=== PATIENT | male | born 1955 | race Caucasian/White ===

== ENCOUNTER → 2016-07-05 | Day surgery (SDC) | payer OTHER ==
[2016-06-30 08:21] VITALS: Ht 175.3 cm; Wt 86.4 kg
[~2016-07-05] VITALS: Ht 175.3 cm; Wt 86.4 kg
[~2016-07-05] MED LIST: ADVIN25/60 INH; ASPCH81X PO; AZITTAB PO; EZET10TA63 PO; HYZ/10015 PO; LIDOCAINE HCL 2% 2 ML VIAL (20MG/ML) ONE; METO50TA7 PO; MULT-506 PO; PROPOFOL IV EMULSION 10 MG/ML 20 ML VIAL IV ONE; SIMV40TA2 PO; SODIUM CHLORIDE 0.9% 500ML 500 ML IV ONE
--- NOTE | 2016-07-05 13:26 | Endo History and Physical ---
History & Physical Date of Service: Jul 05, 2016. Chief Complaint: Screening Referring Physician: Ruth Menjivar History of Present Illness screening colon Past Surgical History Hx Cardiac Surgery: No Hx Internal Defibrillator: No Hx Pacemaker: No Hx Abdominal Surgery: Yes (INGUINAL HERNIA) Hx of Implantable Prosthesis: No Hx Post-Op Nausea and Vomiting: No Hx Cancer Surgery: No Hx Thoracic Surgery: No Hx Orthopedic: No Hx Urinary Tract Surgery: No Family History None Social History Smoking Status: Former Smoker Hx Substance Use: No Hx Alcohol Use: Yes (4-5 BEERS WEEKLY) Allergies Coded Allergies: NO KNOWN DRUG ALLERGIES (Verified Allergy, Unknown, ., 06/30/16) Current Medications Reported Home Medications Medications Dose Route/Sig Max Daily Dose Days Date Category Zithromax Z-Wilson (Azithromycin) 250 Mg Tab 1 Pkt PO UD 5 06/30/16 Reported Multivitamin (Multivitamins) Tab 1 Tab PO QPM 06/30/16 Reported Aspirin Chewable (Aspirin) 81 Mg Chew 2 Tab PO QPM 06/30/16 Reported Advair Diskus 250/50 60 Dose (Fluticasone Prop/Salmeterol) 1 Ea Aerp 1 Puff INH BID 06/30/16 Reported Zetia (Ezetimibe) 10 Mg Tab 10 Mg PO QPM 06/30/16 Reported Zocor (Simvastatin) 40 Mg Tab 40 Mg PO QPM 06/30/16 Reported Toprol-Xl (Metoprolol Succinate) 50 Mg Tabcr 50 Mg PO QPM 06/30/16 Reported Hyzaar 25MG/100MG (HCTZ/Losartan Potassium) Tab 1 Tab PO QPM 06/30/16 Reported Vital Signs Weight (Kilograms): 86.36 Height (Feet): 5 Height (Inches): 9 Date Time Temp Pulse Resp B/P Pulse Ox O2 Delivery O2 Flow Rate FiO2 07/05/16 12:40 36.6 52 20 138/83 97 Room Air Physical Exam AAO x3 nl s1s2 Lungs CTA Abd soft NT/ND + BS - CCE Assessment and Plan screening colonoscopy
--- NOTE | 2016-07-05 13:48 | Discharge Instructions ---
Endoscopy Patient Instructions Date / Procedure(s) Performed Jul 05, 2016. Colonoscopy Allergy Information Coded Allergies: NO KNOWN DRUG ALLERGIES (Verified Allergy, Unknown, ., 06/30/16) Discharge Date / Findings Jul 05, 2016. colon with polyp- removed Medication Instructions Stopped Medication(s): ASA, Multivitamin Restart Stopped Medication(s): Reported Home Medications Medications Dose Route/Sig Max Daily Dose Days Date Category Zithromax Z-Wilson (Azithromycin) 250 Mg Tab 1 Pkt PO UD 5 06/30/16 Reported Multivitamin (Multivitamins) Tab 1 Tab PO QPM 06/30/16 Reported Aspirin Chewable (Aspirin) 81 Mg Chew 2 Tab PO QPM 06/30/16 Reported Advair Diskus 250/50 60 Dose (Fluticasone Prop/Salmeterol) 1 Ea Aerp 1 Puff INH BID 06/30/16 Reported Zetia (Ezetimibe) 10 Mg Tab 10 Mg PO QPM 06/30/16 Reported Zocor (Simvastatin) 40 Mg Tab 40 Mg PO QPM 06/30/16 Reported Toprol-Xl (Metoprolol Succinate) 50 Mg Tabcr 50 Mg PO QPM 06/30/16 Reported Hyzaar 25MG/100MG (HCTZ/Losartan Potassium) Tab 1 Tab PO QPM 06/30/16 Reported Reported Home Medications Medications Dose Route/Sig Max Daily Dose Days Date Category Zithromax Z-Wilson (Azithromycin) 250 Mg Tab 1 Pkt PO UD 5 06/30/16 Reported Multivitamin (Multivitamins) Tab 1 Tab PO QPM 06/30/16 Reported Aspirin Chewable (Aspirin) 81 Mg Chew 2 Tab PO QPM 06/30/16 Reported Advair Diskus 250/50 60 Dose (Fluticasone Prop/Salmeterol) 1 Ea Aerp 1 Puff INH BID 06/30/16 Reported Zetia (Ezetimibe) 10 Mg Tab 10 Mg PO QPM 06/30/16 Reported Zocor (Simvastatin) 40 Mg Tab 40 Mg PO QPM 06/30/16 Reported Toprol-Xl (Metoprolol Succinate) 50 Mg Tabcr 50 Mg PO QPM 06/30/16 Reported Hyzaar 25MG/100MG (HCTZ/Losartan Potassium) Tab 1 Tab PO QPM 06/30/16 Reported Provider Instructions Activity Restrictions - No exercising or heavy lifting for 24 hours. - Do not drink alcohol the day of the procedure. - Do not drive a car or operate machinery until the day after the procedure. - Do not make any important decisions or sign important papers in 24 hours after the procedure. Following Day: - Return to full activity which may include returning to work/school. Diet Start your diet with liquids and light foods (jello, soup, juice, toast). Then eat your usual diet if not nauseated. Treatment For Common After Affects For mild abdominal pain, bloating, or excessive gas: - Rest - Eat lightly - Lie on right side Follow-Up Information Follow-up with Ruth Menjivar as scheduled Anesthesia Information What You Should Know You have had a procedure that required some medicine to reduce anxiety and discomfort. This treatment is called moderate sedation. After receiving the treatment, you may be sleepy, but you will be able to breathe on your own. The effects of the treatment may last for several hours. Follow these instructions along with Activity/Diet recommendations noted above: * Do NOT do anything where dizziness or clumsiness would be dangerous. * Rest quietly at home today, then you can be up and about tomorrow. * Have a responsible person stay with you the rest of today. * You may have had an I.V. today. If so, you may take the dressing off later today. Recommendations Call your doctor if: * Trouble breathing * Continuous vomiting for more than 24 hours * Temperature above 101 degrees * Severe abdominal pain or bloating * Pain not relieved by pain medicine ordered * There is increased drainage or redness from any incision * A large amount of rectal bleeding greater than 2-3 tablespoons. (If you had a polyp/s removed or have hemorrhoids, a small amount of blood - from the rectum is to be expected.) * You have any unanswered questions or concerns. IN THE EVENT OF A SERIOUS EMERGENCY, GO TO THE NEAREST EMERGENCY ROOM Your discharge instructions were prepared by provider Reynold Witt. Patient Instructions Signature Page Junito Alston Patient (or Guardian) Signature/Date: I have read and understand the instructions given to me by my caregivers. Caregiver/RN/Doctor Signature/Date: The above-named patient and/or guardian has received patient instructions on this date. + Original Patient Signature Page (only) stays with chart. Please make copy for patient.
--- NOTE | 2016-07-05 13:54 | GI REPORT ---
Procedure Date: 07/05/2016 12:56 PM Procedure: Colonoscopy Indications: Screening for colorectal malignant neoplasm Medicines: Propofol per Anesthesia Complications: No immediate complications. Estimated blood loss: Minimal. Estimated Blood Loss: Estimated blood loss was minimal. Procedure: Pre-Anesthesia Assessment: - Prior to the procedure, a History and Physical was performed, and patient medications and allergies were reviewed. The patient's tolerance of previous anesthesia was also reviewed. The risks and benefits of the procedure and the sedation options and risks were discussed with the patient. All questions were answered, and informed consent was obtained. Prior Anticoagulants: The patient has taken no previous anticoagulant or antiplatelet agents. ASA Grade Assessment: II - A patient with mild systemic disease. After reviewing the risks and benefits, the patient was deemed in satisfactory condition to undergo the procedure. After I obtained informed consent, the scope was passed under direct vision. Throughout the procedure, the patient's blood pressure, pulse, and oxygen saturations were monitored continuously. The On-site loaner was introduced through the anus and advanced to the terminal ileum, with identification of the appendiceal orifice and IC valve. The colonoscopy was performed without difficulty. The patient tolerated the procedure well. The quality of the bowel preparation was good. Findings: The perianal and digital rectal examinations were normal. Pertinent negatives include normal sphincter tone, no palpable rectal lesions and no anal lesion or abnormality was detected. A 3 mm polyp was found in the transverse colon. The polyp was sessile. The polyp was removed with a cold biopsy forceps. Resection and retrieval were complete. Estimated blood loss was minimal. Verification of patient identification for the specimen was done by the physician and scale technician using the patient's name and medical record number. A few small-mouthed diverticula were found in the sigmoid colon. The terminal ileum appeared normal. The exam was otherwise without abnormality. The retroflexed view of the distal rectum and anal verge was normal and showed no anal or rectal abnormalities. Impression: - One 3 mm polyp in the transverse colon, removed with a cold biopsy forceps. Resected and retrieved. - Diverticulosis in the sigmoid colon. - The examined portion of the ileum was normal. - The examination was otherwise normal. - The distal rectum and anal verge are normal on retroflexion view. Recommendation: - Discharge patient to home (ambulatory). - Resume regular diet. - Continue present medications. - Await pathology results. - Await pathology results. - Repeat colonoscopy for surveillance based on pathology results. MD Reynold Cohen MD 07/05/2016 1:53:29 PM This report has been signed electronically. Note Initiated On: 07/05/2016 12:56 PM I attest to the content of the Intraoperative Record and orders documented therein, exceptions below
--- NOTE | 2016-07-05 13:59 | Anesthesiology Progress Note ---
Anesthesia Post Op Note Date & Time Jul 05, 2016 at 13:59 Vital Signs Vital Signs Past 12 Hours Date Time Temp Pulse Resp B/P Pulse Ox O2 Delivery O2 Flow Rate FiO2 07/05/16 13:57 55 20 129/74 99 Room Air 07/05/16 12:40 36.6 52 20 138/83 97 Room Air Notes Mental Status: alert / awake / arousable, participated in evaluation Pt Amnestic to Procedure: Yes Nausea / Vomiting: adequately controlled Pain: adequately controlled Airway Patency, RR, SpO2: stable & adequate BP & HR: stable & adequate Hydration State: stable & adequate Anesthetic Complications: no major complications apparent
[2016-07-05 14:35] VITALS: BP 144/78; PULSE 51; O2SAT 100
== END | disposition home or self-care (01) ==
LOC: C.GI 11:54
PROVIDERS: ATTEND Internal Medicine Gastroenterology
DX: Z12.11 Encounter for screening for malignant neoplasm of colon (principal); D12.3 Benign neoplasm of transverse colon; K57.90 Diverticulosis of intestine, part unspecified, without perforation or abscess without bleeding; Z87.891 Personal history of nicotine dependence

== ENCOUNTER 2024-05-15 08:29 | Inpatient (IN) ==
--- NOTE | 2024-05-15 08:52 | Emergency Department Note ---
Impression & Plan Acute hypoxemic respiratory failure, Influenza A, Acute dyspnea, Elevated brain natriuretic peptide (BNP) level, Leukocytosis, Hypomagnesemia ED Provider Note HISTORY OF PRESENT ILLNESS: Patient is a 68-year-old male presenting with multiple complaints. He reports he has been having a cough productive of a white phlegm for the last 3 weeks. He states he had a cough and runny nose about 3 weeks ago and was started on amoxicillin for "the flu." He states that he was not tested for the flu he was just started on the antibiotic. He finished the amoxicillin on 05/08/2024. He states that he initially felt slightly improved but over the last week or so has had worsening of his symptoms. He reports that he is "hacking all the time." He denies any chest pain or significant shortness of breath. He states that in the last 24 hours he has had a decreased appetite stating "stuff I normally like to eat no longer interest me." He states that last night while trying to eat Patsy dinner of ham and potatoes he had "2 bites and then started gagging." He denies any abdominal pain. Denies any notable fevers. Denies any dysuria or hematuria. He reports that multiple members of his family have been sick with similar symptoms over the last few weeks. He had a cardiac ablation earlier in the month on 04/24/2024. Patient is on Eliquis. He does have multiple stents in his heart. Denies any DVT or PE history. ROS: as above PHYSICAL EXAM: Constitutional: Patient appears in no acute distress. HENT: Head: Normocephalic and atraumatic. Eyes: EOMI, PERRL Mouth/Throat: Mucous membranes moist. Neck: Trachea midline. Neck supple. Cardiovascular: RRR, No murmurs, rubs or gallops. Intact distal pulses. Pulmonary/Chest: No respiratory distress. Breath sounds clear and equal bilaterally. No wheezes or rales. Abdominal: Abdomen soft, no tenderness, rebound or guarding. Musculoskeletal: No edema, tenderness or deformity noted. Skin: Warm and dry. No rash, erythema, pallor or cyanosis Psychiatric: Appropriate mood and affect for situation. Neurological: Alert and keenly responsive. CN II-XII grossly intact, moving all extremities equally and fully. MDM: - Vitals signs showed hypertension - History obtained via patient. History as above. - Chronic conditions affecting care: HTN; HLD; Afib; CAD (s/p PCI) - Differential diagnoses include, but are not limited to: Congestive heart failure; acute coronary syndrome; COPD/asthma exacerbation; pulmonary edema; pulmonary embolism; pneumonia; pneumothorax; viral syndrome - Order placed for continuous cardiac monitoring. At this time, monitor showed rate of 80 bpm with normal sinus rhythm, per my interpretation. - External medical records reviewed. Express care note dated 05/09/2024 was reviewed. Patient was seen due to not being able to eat for the last 1.5 months. He reported to them that he takes a few bites and then begins to gag. He was prescribed Zofran to see if it would help with his hunger and also was recommended to start Pepto-Bismol. - EKG interpreted by myself showed normal sinus rhythm. Rate 80 bpm. QT 362. No acute ischemic changes. Noted to have some T wave inversions in V4 through V6. - Laboratory workup interpreted by myself showed leukocytosis (WBC 17.20) with neutrophil predominance; elevated INR (1.2); slight hyponatremia (Na 133); normal lactate; hypomagnesemia (Mg 1.6); transaminitis (AST 63; ALT 64); normal troponin; elevated BNP (532) - CXR negative for obvious pneumonia, per my interpretation. However, radiology notes feet bilateral airspace opacities which could be atelectasis versus pneumonia. - Patient's saturations were down to 89% on room air. He does not wear any supplemental oxygen at baseline. He was placed on 2 L nasal cannula with oxygen saturation goal of 93% and above. - Blood cultures obtained - Patient given 2g IV rocephin and 100 mg PO doxycycline for antibiotic coverage. Given 1g IV magnesium for electrolyte replacement. - Viral respiratory panel positive for influenza A - Discussion was had with correctional counselor/case manager about patient's case and need for admission - Hospitalist consulted for admission - [facility] ASSESSMENT AND PLAN: Diagnosis: acute hypoxemic respiratory failure; influenza A; acute dyspnea; elevated BNP; leukocytosis; hypomagnesemia Plan: admit Past Med/Surg History Problem List (Updated 05/15/24 @ 11:40 by Tila Rizvi MD) Hypomagnesemia (Acute) Leukocytosis (Acute) Elevated brain natriuretic peptide (BNP) level (Acute) Acute dyspnea (Acute) Influenza A (Acute) Acute hypoxemic respiratory failure (Acute) Chronic dyspnea Multiple pulmonary nodules determined by computed tomography of lung History of nicotine use Eustachian tube dysfunction Acquired deviated nasal septum Sensorineural hearing loss (SNHL) of both ears Hyponatremia Total bilirubin, elevated Atrial fibrillation 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 Anticoagulant long-term use Dyspnea on exertion Claudication Chronic obstructive pulmonary disease Cavitating mass in right upper lung lobe Nocardia infection Hemoptysis Indeterminate pulmonary nodules Hypokalemia (Acute) Difficulty voiding (Acute) Hyponatremia DVT prophylaxis Hypoxia Alcohol use Hyperlipidemia Hypertension Perforated small intestine (Acute) Inflammation of small intestine Free intraperitoneal air Encounter for pre-operative examination H/O hernia repair Asthma Atrial fibrillation with RVR Medical History History of colon cancer Chronic throat clearing History of lung disease Chronic obstructive pulmonary disease CAD (coronary artery disease) PAD (peripheral artery disease) Paroxysmal atrial fibrillation HLD (hyperlipidemia) HTN (hypertension) Surgical History Perforated bowel History of colon resection History of vascular surgery History of cardiac cath S/P right inguinal hernia repair S/P tonsillectomy Hx of colonoscopy Family History Mother Cancer Father Cirrhosis of liver Other No family history of adverse response to anesthesia No family history of bleeding disorder Social History Smoking Status: Never smoker Tobacco Type: Cigarettes Age Started Using Tobacco: 6; Age Quit Using Tobacco: 56; packs per day: 2; Do You Dip or Chew Tobacco: No; Hx Alcohol Use: No Hx Substance Use: No Preferred Language: [place] Communication Ability: Effective [employer] Required: No Beliefs That Will Affect Care: None marital status: Current Living Situation: Spouse and Family Current Living Situation Comment: , daughter and grandson Feels Safe at Home: Yes Assistive Devices: Denture - Upper, Glasses and Hearing Aid - Bilateral Allergies Allergies Allergy/AdvReac Type Severity Reaction Status Date / Time codeine AdvReac Unknown "robitussin Verified 05/15/24 09:57 with codeine" see notes guaifenesin [From Robitussin] AdvReac Unknown see notes Verified 05/15/24 09:57 Home Meds Home Medications Medication Instructions Recorded Confirmed aspirin 81 mg tablet,delayed 81 mg PO QPM 06/29/23 05/15/24 release ezetimibe 10 mg tablet 10 mg PO QPM 06/29/23 05/15/24 furosemide 20 mg tablet (Lasix) See Rx Instructions .Route .COMPLEX 06/29/23 05/15/24 multivitamin 1 cap PO QPM 06/29/23 05/15/24 metoprolol succinate 25 mg 75 mg PO QAM 05/15/24 05/15/24 tablet,extended release 24 hr valsartan 80 mg tablet 80 mg PO DAILY 05/15/24 05/15/24 Previous Rx's Medication Instructions Recorded albuterol sulfate 90 mcg/actuation 2 puff inhalation QID PRN 07/25/22 aerosol inhaler (Ventolin HFA) shortness of breath or wheezing #18 grams fluticasone 250 mcg-salmeterol 50 1 inh inhalation BID #3 Inhalers 10/23/23 mcg/dose blistr powdr for inhalation (Wixela Inhub) apixaban 5 mg tablet (Eliquis) 5 mg PO BID #180 tabs 12/17/23 tiotropium bromide 2.5 2 inh inhalation QAM #3 Inhalers 03/18/24 mcg/actuation mist for inhalation (Spiriva Respimat) ondansetron 4 mg disintegrating 4 mg PO Q8H #30 tabs 05/09/24 tablet Results & Data (ED) Vital Signs Vital Signs - 24 hr 05/15/24 08:34 05/15/24 08:47 05/15/24 08:51 Temperature 36.6 C Temperature Source Oral Pulse Rate 81 79 82 Pulse Rate from SpO2 Sensor 82 Respiratory Rate 18 24 Blood Pressure 151/84 H 154/91 H Blood Pressure Mean 106 112 Blood Pressure Position Sitting Pulse Oximetry 98 90 Oxygen Delivery Method Nasal Cannula Oxygen Flow Rate 2 Sepsis Recent Fever Within 48 Hours No Sepsis New/Unexplained Change in Mental Status No Sepsis Action Taken by Nursing No Action Required 05/15/24 08:54 05/15/24 09:03 05/15/24 09:04 Temperature Temperature Source Pulse Rate 77 78 Pulse Rate from SpO2 Sensor 77 78 Respiratory Rate 30 H 30 H Blood Pressure 151/87 H 151/87 H Blood Pressure Mean 108 108 Blood Pressure Position Pulse Oximetry 90 94 89 L Oxygen Delivery Method Nasal Cannula Nasal Cannula Room Air Oxygen Flow Rate 2 2 Sepsis Recent Fever Within 48 Hours Sepsis New/Unexplained Change in Mental Status Sepsis Action Taken by Nursing 05/15/24 09:05 05/15/24 09:57 05/15/24 10:03 Temperature Temperature Source Pulse Rate 71 70 Pulse Rate from SpO2 Sensor 71 70 Respiratory Rate 26 H 21 Blood Pressure 145/82 H Blood Pressure Mean 103 Blood Pressure Position Pulse Oximetry 93 94 94 Oxygen Delivery Method Nasal Cannula Nasal Cannula Nasal Cannula Oxygen Flow Rate 2 2 2 Sepsis Recent Fever Within 48 Hours Sepsis New/Unexplained Change in Mental Status Sepsis Action Taken by Nursing 05/15/24 10:21 05/15/24 10:30 Temperature Temperature Source Pulse Rate 66 Pulse Rate from SpO2 Sensor 66 Respiratory Rate 21 Blood Pressure 167/92 H Blood Pressure Mean 118 Blood Pressure Position Pulse Oximetry 94 Oxygen Delivery Method Nasal Cannula Oxygen Flow Rate 2 Sepsis Recent Fever Within 48 Hours Sepsis New/Unexplained Change in Mental Status Sepsis Action Taken by Nursing Laboratory Data 05/15/24 08:45 05/15/24 08:45 Lab Results 05/15/24 05/15/24 Range/Units 08:45 09:21 WBC 17.20 H (4.8-10.8) K/ul RBC 4.18 L (4.70-6.10) M/uL Hgb 14.0 (14.0-18.0) g/dl Hct 40.4 L (42.0-52.0) % MCV 96.7 (80.0-100.0) fL MCH 33.5 (25.0-34.0) pg MCHC 34.7 (32.0-36.0) g/dL RDW Std Deviation 42.5 (36.4-46.3) fL RDW Coeff of Ivan 11.9 (11.5-14.5) % Plt Count 253 (130-400) K/uL MPV 9.6 (9.4-12.4) fL Immature Gran % (Auto) 0.6 % Neut % (Auto) 86.0 % Lymph % (Auto) 3.9 % [place] % (Auto) 9.4 % Eos % (Auto) 0.0 % Baso % (Auto) 0.1 % Neut # (Auto) 14.79 H (1.40-6.50) K/uL Lymph # (Auto) 0.67 L (1.20-3.40) K/uL [place] # (Auto) 1.62 H (0.11-0.59) K/uL Eos # (Auto) 0.00 (0.00-0.50) K/uL Baso # (Auto) 0.02 (0.00-0.20) K/uL Immature Gran # (Auto) 0.10 (0.01-0.20) K/uL PT 12.4 H (9.0-12.0) Seconds INR 1.2 H (0.9-1.1) Sodium 133 L (136-145) mmol/L Potassium 4.1 (3.5-5.1) mmol/L Chloride 96 L (98-107) mmol/L Carbon Dioxide 30 (21-32) mmol/L Anion Gap 7 (3-11) BUN 12 (6-23) mg/dl Creatinine 0.77 (0.6-1.4) mg/dl Est Cr Clr Drug Dosing 84.8 ml/min eGFR 96.31 BUN/Creatinine Ratio 15.6 (10-20) Glucose 119 H (70-99(Fasting)) mg/dl Lactate 1.0 (0.4-2.0) mmol/L Calcium 9.3 (8.6-10.3) mg/dl Magnesium 1.6 L (1.7-2.4) mg/dl Total Bilirubin 1.0 (0.2-1.0) mg/dl AST 63 H (13-39) U/L ALT 64 H (7-52) U/L Alkaline Phosphatase 94 (34-104) U/L Troponin I High Sens 17.0 (0-20) pg/ml B-Natriuretic Peptide 532 H (0-100) pg/ml Total Protein 7.8 (6.0-8.3) gm/dl Albumin 3.9 (3.4-5.0) gm/dl Globulin 3.9 (2.5-4.0) gm/dl Albumin/Globulin Ratio 1.0 (0.9-2) Procalcitonin 0.04 (0-0.5) ng/ml Adenovirus (PCR) Not Detected (NotDetected) B. pertussis DNA (PCR) Not Detected (NotDetected) B.parapertussis DNA PCR Not Detected (NotDetected) C. pneumoniae DNA (PCR) Not Detected (NotDetected) Coronavirus OC43 (PCR) Not Detected (NotDetected) Coronavirus HKU1 (PCR) Not Detected (NotDetected) Coronavirus 229E (PCR) Not Detected (NotDetected) SARS-CoV-2 (PCR) Not Detected (NotDetected) Coronavirus NL63 (PCR) Not Detected (NotDetected) Human Metapneumovir PCR Not Detected (NotDetected) Influenza A (H3) PCR DETECTED A (NotDetected) Influenza Type B (PCR) Not Detected (NotDetected) M. pneumoniae (PCR) Not Detected (NotDetected) Parainfluenza 1 (PCR) Not Detected (NotDetected) Parainfluenza 2 (PCR) Not Detected (NotDetected) Parainfluenza 3 (PCR) Not Detected (NotDetected) Parainfluenza 4 (PCR) Not Detected (NotDetected) RSV (PCR) Not Detected (NotDetected) Entero/Rhino (PCR) Not Detected (NotDetected) Administered Medications Ceftriaxone Sodium (Rocephin) 2,000 mg in 50 mls @ 100 mls/hr IV Q24H YANET Stop: 05/20/24 09:44 Last Infusion: 05/15/24 10:15 Dose: Infused Documented By: Admin: 05/15/24 09:44 Dose: 100 mls/hr Documented By: ABISAI Discontinued Medications Doxycycline Hyclate (Doxycycline Hyclate 100 Mg Cap) 100 mg PO NOW STA Stop: 05/15/24 09:39 Last Admin: 05/15/24 09:45 Dose: 100 mg Documented By: ABISAI Magnesium Sulfate/Dextrose (Magnesium Sulfate / D5w) 1 gm in 100 mls @ 100 mls/hr IV NOW STA Stop: 05/15/24 11:05 Last Infusion: 05/15/24 11:24 Dose: Infused Documented By: Admin: 05/15/24 10:30 Dose: 100 mls/hr Documented By: ABISAI Imaging Data Radiologist's Impression: Chest X-Ray 05/15/24 08:39 XR chest 1V portable CLINICAL HISTORY: Dyspnea TECHNIQUE: Single frontal radiograph of the chest was obtained. Comparison: Comparison is made to chest radiograph 05/05/2024 FINDINGS: No lines and tubes are seen. Calcified aortic knob is seen. Faint bibasilar airspace opacities are seen. No evidence of pleural effusion or pneumothorax. IMPRESSION: Faint bibasilar airspace opacities which may represent atelectasis, pneumonia, and/or aspiration. ACT 112: Negative or not required by law. Electronically signed by: Washington Chapa M.D. 05/15/2024 9:08 AM Discharge Plan Visit Data Chief Complaint: Flu Like Symptoms Stated Complaint: CONGESTION/SINUS PRESSURE, COUGH, SOB ED Provider: Tila Rizvi Discharge Problem: Acute hypoxemic respiratory failure, Influenza A, Acute dyspnea, Elevated brain natriuretic peptide (BNP) level, Leukocytosis, Hypomagnesemia Forms Stand Alone Forms: My [facility] Prescriptions Prescriptions: No Action albuterol sulfate [Ventolin HFA] 90 mcg/actuation HFA aerosol inhaler 2 puff INH QID PRN (Reason: shortness of breath or wheezing) Qty: 18 5RF fluticasone propion-salmeterol [Wixela Inhub] 250-50 mcg/dose blister with device 1 inh inhalation BID Qty: 3 3RF Eliquis 5 mg tablet 5 mg PO BID Qty: 180 3RF Spiriva Respimat 2.5 mcg/actuation mist 2 inh inhalation QAM Qty: 3 3RF ondansetron 4 mg tablet,disintegrating 4 mg PO Q8H Qty: 30 0RF valsartan 80 mg tablet 80 mg PO DAILY metoprolol succinate 25 mg tablet extended release 24 hr 75 mg PO QAM multivitamin Capsule 1 cap PO QPM ezetimibe 10 mg Tablet 10 mg PO QPM aspirin 81 mg tablet,delayed release (DR/EC) 81 mg PO QPM furosemide [Lasix] 20 mg tablet See Rx Instructions .ROUTE .COMPLEX Rx Instructions: Take 40mg by mouth on Sunday, Sunday and Sunday then take 20mg by mouth all other days Referrals Referrals: Ruth Mejnivar DO [Primary Care Provider] -
[2024-05-15 09:03] LABS: Basophils # (auto) 0.02 K/uL (0.00-0.20); Basophils % (auto) 0.1 %; Hematocrit (blood only) 40.4 % (42.0-52.0); Immature Granulocytes % (auto) 0.6 %; Lymphocytes # (auto) 0.67 K/uL (1.20-3.40); Lymphocytes % (auto) 3.9 %; Mean Corpuscular Hemoglobin 33.5 pg (25.0-34.0); Mean Corpuscular Hgb Conc 34.7 g/dL (32.0-36.0); Mean Corpuscular Volume 96.7 fL (80.0-100.0); Mean Platelet Volume 9.6 fL (9.4-12.4); Monocytes # (auto) 1.62 K/uL (0.11-0.59); Monocytes % (auto) 9.4 %; Neutrophils # (auto) 14.79 K/uL (1.40-6.50); Platelet Count 253 K/uL (130-400); RDW Coefficient of Variation 11.9 % (11.5-14.5); RDW Standard Deviation 42.5 fL (36.4-46.3); Red Blood Count 4.18 M/uL (4.70-6.10)
--- NOTE | 2024-05-15 09:09 | XRay Report ---
XR chest 1V portable CLINICAL HISTORY: Dyspnea TECHNIQUE: Single frontal radiograph of the chest was obtained. Comparison: Comparison is made to chest radiograph 05/05/2024 FINDINGS: No lines and tubes are seen. Calcified aortic knob is seen. Faint bibasilar airspace opacities are se en. No evidence of pleural effusion or pneumothorax. IMPRESSION: Faint bibasilar airspace opacities which may represent atelectasis, pneumonia, and/or aspiration. ACT 112: Negative or not required by law. Electronically signed by: Washington Chapa M.D. 05/15/2024 9:08 AM
--- OUTSIDE RECORDS SUMMARY | 2024-05-15 09:15 | External Medical Summary | Continuity of Care Document ---
Author Name Unknown Organization [address] Address [address] [place] [id number] Care Team Providers Care Payroll And Benefits Manager Name Role Phone Ruth Menjivar Primary Care Physician [phone] [id number] Date(s): 05/12/24 - 05/12/[address], [address] [place] [address] [place] [phone] Encounter Diagnosis Body mass index [BMI] 26.0-26.9, adult(Discharge Diagnosis) - 05/12/24 Difficulty eating(Discharge Diagnosis) - 05/12/24 Other symptoms and signs concerning food and fluid intake(Final) - Discharge Disposition: Home or Self Care Attending Physician: DO Tinajero Mehwish Referring Physician: DO Menjivar Kristen M Allergies, Adverse Reactions, Alerts Substance Criticality Severity Reaction Reaction Severity Status codeine unsure Active guaiFENesin increases BP from robitussin Active Assessment and Plan Extracted from: Title:Office Visit Note - APSO Author:DO Tinajero Mehwish Date:05/12/24 1.Difficulty eating Undifferentiated new problem with uncertain prognosis Goal:Resolution Data:unique tests ordered: _ CBC, CMP Plan: Trial of pantoprazole- may be possible silent GERD CBC ordered given reported hemoptysis- and on eliquis Given recent EGD- low suspicion for possible esophageal web/ring though possible given reported different feeling and without dysphage. Will have him follow-up in 2 weeks, if not improving with PPI- may need repeat EGD or gastric emptying study verus referral to GI Return precautions werediscussed. Immunizations Given and Recorded Vaccine Date Status Refusal Reason pneumococcal 23-valent vaccine 05/26/21 Given pneumococcal 23-valent vaccine 12/10/14 Given SARS-CoV-2 (COVID-19) mRNA BNT-162b2 vax 1 04/27/21 Recorded SARS-CoV-2 (COVID-19) mRNA BNT-162b2 vax 2 08/07/20 Recorded SARS-CoV-2 (COVID-19) mRNA BNT-162b2 vax 3 07/17/20 Recorded zoster vaccine, inactivated 09/30/20 Recorded zoster vaccine, inactivated 05/31/20 Recorded pneumococcal 13-valent vaccine 06/19/19 Given tetanus/diphtheria/pertuss, acel (Tdap) 06/07/15 G iven tetanus/diphtheria/pertuss, acel (Tdap) 06/05/05 R ecorded zoster vaccine live 06/09/14 Recorded 1Result Comment: 2022-05-30: Historical information-source unspecified 2Result Comment: 2022-05-30: Historical information-source unspecified 3Result Comment: 2022-05-30: Historical information-source unspecified Medications acetaminophen 500 mg oral tablet Start: 08/01/22 1:21:00 PM EDT, 1 Refill(s), 2 caps every 8 hours for 3 days, then 1 cap every 4 hours as needed for pain. Do not exceed 3000mg acetaminophen (Tylenol) every 24 hours. Start Date: 08/01/22 Status: Ordered amoxicillin 500 mg oral capsule Start: 03/17/24 2:19:00 PM EDT, 4 cap, PO, As indicated, Disp# 12 cap, Refills: 3, take 4 capsules 1 hour before dental procedure, Pharmacy: [facility]/pharmacy #[id number] Start Date: 03/17/24 Status: Ordered aspirin 81 mg oral delayed release tablet Start: 01/19/21 3:19:00 PM EDT, 1 tab, PO, Daily Start Date: 01/19/21 Status: Ordered Eliquis 5 mg oral tablet Start: 03/21/22 3:31:00 PM EDT, 1 tab, PO, bid Start Date: 03/21/22 Status: Ordered ezetimibe 10 mg oral tablet Start: 05/13/24 1:38:00 PM EST, 1 tab, PO, Daily, Disp# 90 tab, Refills: 3, Pharmacy: [facility] Start Date: 05/13/24 Stop Date: 08/11/24 Status: Ordered furosemide 20 mg oral tablet Start: 01/28/24 9:09:00 AM EDT, See Instructions, Disp# 135 tab, Refills: 3, Take 2 tablets on Sunday, Sunday, and Sunday. Take 1 tablet on all other days., Pharmacy: [facility] Start Date: 01/28/24 Status: Ordered multivitamin Start: 06/07/15 10:12:00 AM EST, 1 tab, PO, Daily Start Date: 06/07/15 Status: Ordered nitroglycerin 0.3 mg sublingual tablet Start: 09/20/23 1:03:00 PM EDT, 1 tab, SL, q5min, Disp# 25 tab, Refills: 3, PRN: as needed for chest pain, Pharmacy: [facility]/pharmacy #[id number] Start Date: 09/20/23 Status: Ordered ondansetron 4 mg oral tablet, disintegrating Start: 05/12/24 9:21:00 AM EST, 1 tab, PO, tid, PRN: as needed for nausea/vomiting Start Date: 05/12/24 Status: Ordered pantoprazole 40 mg oral delayed release tablet Start: 05/12/24 9:52:00 AM EST, 1 tab, PO, Daily, Disp# 30 tab, Refills: 0, Pharmacy: [facility]/pharmacy #[id number] Start Date: 05/12/24 Status: Ordered Spiriva 18 mcg inhalation capsule Start: 06/19/19 8:00:00 AM EST, 1 each, inhaled, bid Start Date: 06/19/19 Status: Ordered Toprol-XL 25 mg oral tablet, extended release Start: 04/27/24 9:05:00 AM EST, 3 tab, PO, Daily, Disp# 90 tab, Refills: 1, Pharmacy: [facility] Start Date: 04/27/24 Status: Ordered valsartan 80 mg oral tablet Start: 12/13/23 10:48:00 AM EDT, 1 tab, PO, Daily, Disp# 90 tab, Refills: 3, Pharmacy: [facility]/pharmacy #[id number] Start Date: 12/13/23 Status: Ordered Wixela Inhub 250 mcg-50 mcg inhalation powder Start: 01/19/21 3:18:00 PM EDT, bid Start Date: 01/19/21 Status: Ordered Mental Status 05/12/24 Barriers to Learning one year None evide nt Mandatory Health Literacy Documentation Yes Health Literacy Communication Barriers N ever Primary Language Arabic Problem List Condition Confirmation Course Effective Dates Status H ealth Status Informant Allergic rhinitis Confirmed Active Atrial fibrillation Confirmed Active COPD Confirmed Active CAD (coronary artery disease) Confirmed Active On apixaban therapy Confirmed Active SANDERSON (dyspnea on exertion) Confirmed Active Former cigarette smoker Confirmed Active S/P ablation of atrial fibrillation Confirmed Active Hearing aid worn 1 Confirmed Active History of melanoma in situ Confirmed Active Hyperlipidemia Confirmed Active Hypertension Confirmed Active Presence of left atrial appendage closure device Confirmed Active Presence of Watchman left atrial appendage closure device Confirmed Active Lumbosacral injury Confirmed Active Colon cancer Confirmed Active Melanoma in situ Confirmed Active Osteoarthritis Confirmed Active Osteoarthritis 2, 3 Confirmed Active Prediabetes Confirmed Active Weight disorder Confirmed Active 1bilat 2neck 3bilat wrists Diagnosis Diagnosis Type Effective Dates Health Status Clinical Service Informant Difficulty eating Discharge Diagnosis 05/12/24 Non-Specified Body mass index [BMI] 26.0-26.9, adult Discharge Diagnosis 05/12/24 Non-Specified Procedures Procedure Date Related Diagnosis Body Site Status EGD (esophagogastroduodenosc opic) electrohydraulic lithotripsy of bezoar in stomach 1 07/04/23 Completed Upper GI (gastrointestinal) endoscopy 2 07/04/23 Completed Colonoscopy 3 06/06/23 Completed Surgery 4 06/07/22 Completed Cardiac catheterization 04/27/22 C ompleted Colonoscopy 5 04/21/22 Completed Excision 07/27/21 Completed Avulsion 07/07/21 Completed Punch biopsy of skin 07/07/21 Comp leted Wrist 03/25/21 Completed Cardiac catheter 11/26/20 Complete d Angioplasty 6 03/26/[address] of chest 7 01/21/19 Completed 12 lead ECG (regime/therapy) 05/11/18 Completed Diagnostic radiography of ab domen (procedure) 05/10/18 Completed Inspection of Peritoneal Cav ity, Percutaneous Endoscopic Approach 05/10/18 Completed 12 lead ECG (regime/therapy) 05/09/18 Completed Computed tomography of abdom en and pelvis with contrast (procedure) 05/09/18 Completed Plain chest X-ray (procedure) 05/09/18 Completed 12 lead ECG (regime/therapy) 04/17/18 Completed Plain chest X-ray (procedure) 04/17/18 Completed Radiography of elbow (procedure) 04/17/18 Completed Radiography of ribs (procedure) 04/17/18 Completed Radiography of shoulder (procedure) 04/17/18 Completed Colonoscopy 8, 9 07/05/16 Complete d Colonoscopy 10 08/03/06 Completed Endoscopy 53 Completed back sugery Completed Coronary artery stent Com pleted Extraction of wisdom tooth Completed Right inguinal hernia Com pleted tonsils Completed 1Normal 2Impression: - No endoscopic esophageal abnormality to explain patient's dysphagia. Esophagus dilated. Dilated. - Normal stomach. - Normal examined duodenum. 32 polyps removed 3 years repeat colon 4Removed mass of colon and a hernia - included approx 10 inches of colon removed 5One 30 mm polyp in the sigmoid colon, ESD using Pocket creation technique attempted however he center of the lesion is adherent to the MP layer suggestive of invasive malignancy. Resection aborted and pocket entrence closed with clips. tattooed 6R lower extremity and L lower extremity 7Multiple new R upper lobe pulmonary opacities including a 23 mm cavitary R apical opacity, and 11 mm cavitary R apical opacity. The distribution favors an infectious/inflammatory over neoplastic process although cavitary neoplasm cannot be excluded. Clinical correlation with any symptoms of an infectious process is recommended. Short-term CT f/u subsequent antibiotic therapy might be concidered. Bronchoscopic eval could also be considered. Emphysema. 8Impression: One 3 mm polyp in the transverse colon, removed with a cold biopsy forceps. Resected and retrieved. Diverticulosis in the sigmoid colon The examined portion of the ileum was normal. The examination was otherwixe normal on retroflexion view. 9Pathology results: Colon, transverse (polypectomy): 1) A serrated polyp with focal features suggestive of a sessile serrated polyp/sessile serrated adenoma is seen. 2) High-grade glandular dysplasia and carcinoma are not seen. 3) Levels x3 have been examined in this case. 10repeat 10 years Results Laboratory List Name Date Complete Blood Count w Differential (CBC ,DIFFH) 05/12/24 Comprehensive Metabolic Panel (COMP META B PANEL) 05/12/24 Most recent to oldest [Reference Range]: 1 eGFR CKD-EPI [>60 mL/min/1.73 m2] >90 mL /min/1.73 m2 1 (05/12/24 10:00 AM) Estimated CrCl 99.29 mL/min (05/12/24 12:41 PM) MPV [9.0-12.2 fL] 10.9 fL (05/12/24 10:00 AM) Immature Gran% 0.9 % (05/12/24 10:00 AM) Neut% 81.4 % (05/12/24 10:00 AM) Lymph% 7.7 % (05/12/24 10:00 AM) Harnett% 9.5 % (05/12/24 10:00 AM) Baso% 0.3 % (05/12/24 10:00 AM) Eos% 0.2 % (05/12/24 10:00 AM) Immat Gran, Abs [0-0.4 K/uL] 0.11 K/uL (05/12/24 10:00 AM) Neut, Abs [2.0-7.7 K/uL] 9.47 K/uL *HI* (05/12/24 10:00 AM) Lymph, Abs [1.0-3.4 K/uL] 0.90 K/uL *LOW* (05/12/24 10:00 AM) Harnett, Abs [0-1.0 K/uL] 1.11 K/uL *HI* (05/12/24 10:00 AM) Baso, Abs [0-0.1 K/uL] 0.04 K/uL (05/12/24 10:00 AM) Eos, Abs [0-0.5 K/uL] 0.02 K/uL (05/12/24 10:00 AM) Type of Diff: AUTO *Unknown* (05/12/24 10:00 AM) RDW [11.5-14.2 %] 11.9 % (05/12/24 10:00 AM) Anion Gap [5-14 mmol/L] 7 mmol/L (05/12/24 10:00 AM) Alb [3.5-5.0 g/dL] 3.9 g/dL (05/12/24 10:00 AM) Alk Phos [38-126 unit/L] 86 unit/L (05/12/24 10:00 AM) ALT [<50 unit/L] 38 unit/L (05/12/24 10:00 AM) AST [15-46 unit/L] 62 unit/L *HI* (05/12/24 10:00 AM) BUN [7-20 mg/dL] 12 mg/dL (05/12/24 10:00 AM) Ca [8.4-10.2 mg/dL] 8.8 mg/dL (05/12/24 10:00 AM) Cl- [96-107 mmol/L] 96 mmol/L (05/12/24 10:00 AM) HCO3 [22-30 mmol/L] 32 mmol/L *HI* (05/12/24 10:00 AM) Cret [0.70-1.30 mg/dL] 0.69 mg/dL *LOW* (05/12/24 10:00 AM) Glu [74-106 mg/dL] 105 mg/dL (05/12/24 10:00 AM) Hct [39-48 %] 45.3 % (05/12/24 10:00 AM) Hgb [13.0-17.0 g/dL] 15.0 g/dL (05/12/24 10:00 AM) K [3.5-5.1 mmol/L] 4.2 mmol/L (05/12/24 10:00 AM) MCH [28-33 pg] 33.2 pg *HI* (05/12/24 10:00 AM) MCHC [32-36 g/dL] 33.1 g/dL (05/12/24 10:00 AM) MCV [81-96 fL] 100.2 fL *HI* (05/12/24 10:00 AM) Na [137-145 mmol/L] 135 mmol/L *LOW* (05/12/24 10:00 AM) Plts [150-350 K/uL] 252 K/uL (05/12/24 10:00 AM) RBC [4.40-5.60 M/uL] 4.52 M/uL (05/12/24 10:00 AM) T Bili [0.2-1.3 mg/dL] 0.9 mg/dL (05/12/24 10:00 AM) Prot [6.3-8.2 g/dL] 7.5 g/dL (05/12/24 10:00 AM) WBC [4.0-10.4 K/uL] 11.65 K/uL *HI* (05/12/24 10:00 AM) 1Result Comment: Testing Performed By: Dept of Pathology [facility] [address], [address], [place] [address] Vital Signs Most recent to oldest [Reference Range]: 1 Height 175 cm (05/12/24 9:12 AM) Patient Weight 81.8 kg (05/12/24 9:12 AM) Body Mass Index 26.71 kg/m2 (05/12/24 9:12 AM) Temperature [36.5-37.9 DegC] 37.0 DegC (05/12/24 9:12 AM) Heart Rate 77 bpm (05/12/24 9:12 AM) Respiratory Rate 16 br/min (05/12/24 9:12 AM) Blood Pressure 150/86mmHg (05/12/24 9:12 AM) Cuff Pulse Pressure 64 mmHg (05/12/24 9:12 AM) Social History Social History Type Response Tobacco Former smoker, Cigar ettes, 40 per day. 51 year(s). Previous treatment: Nicotine replacement. 1, 2 Smoking Status Former Smoker, quit > 1 yr Sex Sex Representation Male (finding) 1Quit in Feb 2013. Smoked for 51 years. 2Quit smoking 8 days ago. [facility] Outpt Note * DO Tinajero Mehwish: PERFORM Event Display: FCM Outpt Note Authored Date: Assessment/Plan 1.Difficulty eating Undifferentiated new problem with uncertain prognosis Goal:Resolution Data:unique tests ordered: _ CBC, CMP Plan: Trial of pantoprazole- may be possible silent GERD CBC ordered given reported hemoptysis- and on eliquis Given recent EGD- low suspicion for possible esophageal web/ring though possible given reported different feeling and without dysphage. Will have him follow-up in 2 weeks, if not improving with PPI- may need repeat EGD or gastric emptying study verus referral to GI Return precautions werediscussed. Chief Complaint ongoing stomach issues- fullness residential thru meal- getting worse unable to eat more then small portions- bowel-once a day History of Present Illness Junito elis 68-year-old male seenfor an acute visitfor stomach concerns. He notes his symptoms have been present for approximately 1 month. He notes that when he has beeneating food he feels like he is not able to eat as muchand will need to stopotherwise he will get a feeling of gagging. He has not had any episodes of emesis. He did notewhile he was on amox icillinfor possible influenza prescribed by urgent care, he did have a couple episodes of hemoptysis. He has had previous EGD and colonoscopy.Per chart review, he had a EGD earlier this yearfor evaluation of dysphagia. He notes that this feeling is differentthan the difficulty swallowing. Nowhe feels like he wants to eat and is hungry but is unable to eat. He denies any issues with constipation. He feels likehis symptoms have gotten progressively worse over the past week. No issues with liquid or ice cream. More problems with solid foods. Has been having regular bowel movements. No pain or abdominal discomfort. Early May 01 had an ablation completed for a flutter. Physical Exam Vitals & Measurements T:37.0C HR:77(Monitored) RR:16 BP:150/86 SpO2:93% HT:175cm WT:81.800kg(Dosing) WT:81.8kg BMI:26.71 PHQ2 Data(Data Documented on:05/12/2024 09:12) Emotional health assessment NEGATIVE GENERAL APPEARANCE: The patient is alert, oriented and in no acute distress. VITALS: As above. HEENT: Head is normocephalic/atraumatic. CARDIOVASCULAR: Regular rate and rhythm LUNGS: Mild expiratory wheezing diffusely ABDOMEN: Soft, nontender, nondistended with normal bowel sounds. No rebound/guarding. NEUROLOGICAL: Grossly non-focal exam. Problem List/Past Medical History Ongoing Allergic rhinitis Atrial fibrillation CAD (coronary artery disease) Colon cancer COPD SANDERSON (dyspnea on exertion) Former cigarette smoker Hearing aid worn History of melanoma in situ Hyperlipidemia Hypertension Lumbosacral injury Melanoma in situ On apixaban therapy Osteoarthritis Osteoarthritis Prediabetes Presence of left atrial appendage closure device Presence of Watchman left atrial appendage closure device S/P ablation of atrial fibrillation Weight disorder Resolved Acute sinusitis Hx of lung disease Hypercholesterolemia Preventative health care Sinusitis SOB (shortness of breath) Tobacco abuse Procedure/Surgical History EGD (esophagogastroduodenoscopic) electrohydraulic lithotripsy of bezoar in stomach| Service Date: 07/04/2023Upper GI (gastrointestinal) endoscopy| Service Date: 07/04/2023olonoscopy| Service Date: 06/06/2023Surgery| Service Date: 06/07/2022ardiac catheterization| Service Date: olonoscopy| Service Date: 04/21/2022Excision| Service Date: 07/27/2021unch biopsy of skin| Service Date: 07/07/2021vulsion| Service Date: 07/07/2021Wrist| Service Date: 03/25/2021ardiac catheter| Service Date: 11/26/2020ngioplasty| Service Date: 03/26/2020CT of chest| Service Date: 01/21/201912 lead ECG (regime/therapy)| Service Date: 05/11/2018Inspection of Peritoneal Cavity, Percutaneous Endoscopic Approach| Service Date: 05/10/2018Diagnostic radiography of abdomen (procedure)| Service Date: 05/10/2018Plain chest X-ray (procedure)| Service Date: 05/09/2018Computed tomography of abdomen and pelvis with contrast (procedure)| Service Date: 05/09/201812 lead ECG (regime/therapy)| Service Date: 05/09/2018Radiography of shoulder (procedure)| Service Date: 04/17/2018Radiography of ribs (procedure)| Service Date: 04/17/2018Radiography of elbow (procedure)| Service Date: 04/17/2018Plain chest X-ray (procedure)| Service Date: 04/17/201812 lead ECG (regime/therapy)| Service Date: 04/17/2018Colonoscopy| Service Date: 2016Colonoscopy| Service Date: 08/03/2006Endoscopy| Service Date: 1953Extraction of wisdom toothtonsilsback sugeryCoronary artery stentRight inguinal hernia Medications acetaminophen(acetaminophen 500 mg oral tablet) amoxicillin(amoxicillin 500 mg oral capsule), 2000 mg= 4 cap, PO, As indicated, 3 refills apixaban(Eliquis 5 mg oral tablet), 5 mg= 1 tab, PO, bid aspirin(aspirin 81 mg oral delayed release tablet), 81 mg= 1 tab, PO, Daily ezetimibe(Zetia 10 mg oral tablet), 10 mg= 1 tab, PO, Daily, 3 refills fluticasone-salmeterol(Wixela Inhub 250 mcg-50 mcg inhalation powder), bid furosemide(furosemide 20 mg oral tablet), See Instructions metoprolol(Toprol-XL 25 mg oral tablet, extended release), 75 mg= 3 tab, PO, Daily, 1 refills multivitamin, 1 tab, PO, Daily nitroglycerin(nitroglycerin 0.3 mg sublingual tablet), 0.3 mg= 1 tab, SL, q5min, PRN, 3 refills ondansetron(ondansetron 4 mg oral tablet, disintegrating), 4 mg= 1 tab, PO, tid, PRN pantoprazole(pantoprazole 40 mg oral delayed release tablet), 40 mg= 1 tab, PO, Daily tiotropium(Spiriva 18 mcg inhalation capsule), 18 mcg= 1 each, inhaled, bid valsartan(valsartan 80 mg oral tablet), 80 mg= 1 tab, PO, Daily, 3 refills Allergies codeineunsure guaiFENesinincreases BP, from robitussin Social History Smoking Status Former Smoker, quit > 1 yr Alcohol - Comments: daily Employment/School - No Risk Sexual - No Risk Tobacco - Denies Tobacco Use Use:Former smoker Type:Cigarettes Tobacco use per day:40 Number of years:51 Previous treatment:Nicotine replacement - Comments: Quit in Feb 2013. Smoked for 51 years. Quit smoking 8 days ago. Family History Cancer: Mother. Cirrhosis.: Father. Health Status Family Member(s) Family Member(s) Relationship: Mother, Age: 52 Years, Cause: stomach cancer; alcoholism Relationship: Father, Age: 52 Years, Cause: cirrhosis; alcoholism Immunizations Vaccine Date Status pneumococcal 23-valent vaccine 05/26/2021 Given SARS-CoV-2 (COVID-19) mRNA BNT-162b2 vax 04/27/2021 Recorded Comments : 2022-05-30: Historical information-source unspecified zoster vaccine, inactivated 09/30/2020 Recorded SARS-CoV-2 (COVID-19) mRNA BNT-162b2 vax 08/07/2020 Recorded Comments : 2022-05-30: Historical information-source unspecified SARS-CoV-2 (COVID-19) mRNA BNT-162b2 vax 07/17/2020 Recorded Comments : 2022-05-30: Historical information-source unspecified zoster vaccine, inactivated 05/31/2020 Recorded pneumococcal 13-valent vaccine 06/19/2019 Given tetanus/diphtheria/pertuss, acel (Tdap) 06/07/2015 Given pneumococcal 23-valent vaccine 12/10/2014 Given zoster vaccine live 06/09/2014 Recorded tetanus/diphtheria/pertuss, acel (Tdap) 06/05/2005 Recorded Recommendations Health Maintenance Pending(in the next year) OverDue Adult Influenza Vaccine due11/18/23and every 1year Due Adult COVID-19 Vaccination due05/12/24Unknown Frequency Hepatitis C Screening due05/12/24One-time only Medicare Annual Wellness Visit due05/12/24and every 1year Due In Future Adult Social Determinants of Health Screening not due until04/24/25and every 366day Satisfied(in the past 1 year) Satisfied Body Mass Index on05/12/24.Satisfied by JAYSHREE Gold Angela Lipid Screening on05/30/23.Satisfied by Contributor_system, [employer] Electronic Signature on File CC: Ruth Menjivar DO [address] [place] [address] Electronically Reviewed/Signed by: Ashwini Tinajero DO Author Signature Dt/Tm:05/12/2024 12:56 PM Division of Sports Medicine MM Patient Care team information Care Team Personnel Name: Deniz Birch Amy E Position: Pharmacist Member Role: Pharmacy - Lifetime Address: [address] [address] [place] Name: MD Markham Todd V Position: Physician - Derm MOH Member Role: Lifetime Relationship Address: [address] [place] [id number] [place] Name: Deniz De Paz Michael Position: Pharmacist Member Role: Pharmacy - Lifetime Name: DO Menjivar Kristen M Position: Physician - Family Med Member Role: Primary Care Provider Address: [address] [place] [address] [place] Name: Deniz Plascencia Erika Joy Position: Pharmacist Member Role: Pharmacy - Lifetime Name: EDWIGE Vega Lynn Position: Physician Federal Mediation Commissioner Exempt - Vasc Surg Member Role: Lifetime Relationship Address: [address] [place] [address], [place] [address] Name: MD West Juan Position: Physician - Family Med Member Role: Lifetime Relationship Address: [address] [place] [address] Care Team Related Persons Name: CARLOS BE Name: CARLOS BE"
[2024-05-15 09:20] LABS: Albumin Level 3.9 gm/dl (3.4-5.0); BUN Creatinine Ratio 15.6 (10-20); Calcium 9.3 mg/dl (8.6-10.3); Creatinine Clr Calc Pharmacy 84.8 ml/min; Globulin 3.9 gm/dl (2.5-4.0); Magnesium 1.6 mg/dl (1.7-2.4); Potassium 4.1 mmol/L (3.5-5.1); Total Protein 7.8 gm/dl (6.0-8.3)
[2024-05-15 09:32] LABS: INR 1.2 (0.9-1.1); Prothrombin Time 12.4 Seconds (9.0-12.0)
[2024-05-15] MEDS: cefTRIAXone SODIUM 2,000 MG/50 ML BAG IV SCH (09:44)
[2024-05-15] MEDS: DOXYCYCLINE HYCLATE 100 MG CAP PO STA (09:45)
[2024-05-15 10:23] LABS: Adenovirus PCR Not Detected (NotDetected); Bordetella parapertussis PCR Not Detected (NotDetected); Bordetella pertussis PCR Not Detected (NotDetected); Chlamydia pneumoniae PCR Not Detected (NotDetected); Coronavirus 229E PCR Not Detected (NotDetected); Coronavirus CoV-2 (COVID19)PCR Not Detected (NotDetected); Coronavirus HKU1 PCR Not Detected (NotDetected); Coronavirus NL63 PCR Not Detected (NotDetected); Coronavirus OC43PCR Not Detected (NotDetected); Human Metapneumovirus PCR Not Detected (NotDetected); Influenza A (H3) PCR DETECTED (NotDetected); Influenza B PCR Not Detected (NotDetected); Mycoplasma pneumoniae PCR Not Detected (NotDetected); Parainfluenza Virus 1 PCR Not Detected (NotDetected); Parainfluenza Virus 2 PCR Not Detected (NotDetected); Parainfluenza Virus 3 PCR Not Detected (NotDetected); Parainfluenza Virus 4 PCR Not Detected (NotDetected); Respiratory Syncytial VirusPCR Not Detected (NotDetected); Rhinovirus/Enterovirus PCR Not Detected (NotDetected)
[2024-05-15] MEDS: MAGNESIUM SULFATE / D5W 1 GM/100 ML BAG IV STA (10:30)
[2024-05-15] MEDS: OSELTAMIVIR PHOSPHATE 75 MG CAP PO STA (12:08)
--- NOTE | 2024-05-15 12:37 | History & Physical Report ---
Date of Service May 15, 2024 Assessment & Plan (1) Acute hypoxemic respiratory failure: Plan: Patient is a history of substantial tobacco abuse presents with acute hypoxic respiratory failure secondary to influenza A infectionpatient improved with 2 L of oxygen Time course is questionable about influenza A, try doses of Tamiflu 1 dose of prednisone on admission reassessment for continue prednisone need Patient is a sees Dr. 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 Prior to this he had a Watchman procedure but subsequent to this he has been placed on Eliquis therapy by Dr. Cortez at [facility]. He currently remains on metoprolol 75 aspirin 81 Lasix 40 mg Sunday and 20 mg other days valsartan 80 and Ezetimibe Plan Patiently brought in primarily for pulmonary distress we will evaluate the need for continued prednisone after we see how he responds for the first 24 hours Secondarily is swallowing issues may require further evaluation if he cannot keep up his nutrition although his nutritional parameters on laboratory studies are good Replete his hypomagnesemia Mild transaminitis is noticed with a previous history of alcohol use Patient is a full code DVT prevention is Eliquis therapy History of Present Illness Primary Care Provider: Ruth Menjivar, DO 68 M with unremitting cough and dysphagia, ( history of esophageal dilation 06/2023), pts previous family members have had Influenza A, Pt is weakened, has hypoxia in the ER, history of tobacco abuse and likely copd. Pt has recently been to [facility] for Ablation and 5 day hospital stay for CHF with increased lasix during the stay. The pt has had good recovery with supplemental oxygen, no focal pneumonia on CXR. Pt biggest issue has been swallowing for the last few weeks, has not been able to eat solids and requests liquid diet. Allergies Allergy/AdvReac Type Severity Reaction Status Date / Time codeine AdvReac Unknown "robitussin Verified 05/15/24 09:57 with codeine" see notes guaifenesin [From Robitussin] AdvReac Unknown see notes Verified 05/15/24 09:57 Home Medications Medication Instructions Recorded Confirmed Type albuterol sulfate 90 mcg/actuation 2 puff inhalation QID PRN 07/25/22 05/15/24 Rx aerosol inhaler (Ventolin HFA) shortness of breath or wheezing #18 grams aspirin 81 mg tablet,delayed 81 mg PO QPM 06/29/23 05/15/24 History release ezetimibe 10 mg tablet 10 mg PO QPM 06/29/23 05/15/24 History furosemide 20 mg tablet (Lasix) See Rx Instructions .Route .COMPLEX 06/29/23 05/15/24 History multivitamin 1 cap PO QPM 06/29/23 05/15/24 History fluticasone 250 mcg-salmeterol 50 1 inh inhalation BID #3 Inhalers 10/23/23 05/15/24 Rx mcg/dose blistr powdr for inhalation (Wixela Inhub) apixaban 5 mg tablet (Eliquis) 5 mg PO BID #180 tabs 12/17/23 05/15/24 Rx tiotropium bromide 2.5 2 inh inhalation QAM #3 Inhalers 03/18/24 05/15/24 Rx mcg/actuation mist for inhalation (Spiriva Respimat) ondansetron 4 mg disintegrating 4 mg PO Q8H #30 tabs 05/09/24 05/15/24 Rx tablet metoprolol succinate 25 mg 75 mg PO QAM 05/15/24 05/15/24 History tablet,extended release 24 hr valsartan 80 mg tablet 80 mg PO DAILY 05/15/24 05/15/24 History Past Med/Surg History Problem List (Updated 05/15/24 @ 12:30 by Solomon oBwman MD) Dysphagia Hypomagnesemia (Acute) Leukocytosis (Acute) Elevated brain natriuretic peptide (BNP) level (Acute) Acute dyspnea (Acute) Influenza A (Acute) Acute hypoxemic respiratory failure (Acute) Chronic dyspnea Multiple pulmonary nodules determined by computed tomography of lung History of nicotine use Eustachian tube dysfunction Acquired deviated nasal septum Sensorineural hearing loss (SNHL) of both ears Hyponatremia Total bilirubin, elevated Atrial fibrillation 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 Anticoagulant long-term use Dyspnea on exertion Claudication Chronic obstructive pulmonary disease Cavitating mass in right upper lung lobe Nocardia infection Hemoptysis Indeterminate pulmonary nodules Hypokalemia (Acute) Difficulty voiding (Acute) Hyponatremia DVT prophylaxis Hypoxia Alcohol use Hyperlipidemia Hypertension Perforated small intestine (Acute) Inflammation of small intestine Free intraperitoneal air Encounter for pre-operative examination H/O hernia repair Asthma Atrial fibrillation with RVR Medical History History of colon cancer Chronic throat clearing History of lung disease Chronic obstructive pulmonary disease CAD (coronary artery disease) PAD (peripheral artery disease) Paroxysmal atrial fibrillation HLD (hyperlipidemia) HTN (hypertension) Surgical History Perforated bowel History of colon resection History of vascular surgery History of cardiac cath S/P right inguinal hernia repair S/P tonsillectomy Hx of colonoscopy Family History Mother Cancer Father Cirrhosis of liver Other No family history of adverse response to anesthesia No family history of bleeding disorder Social History Smoking Status: Never smoker Tobacco Type: Cigarettes Age Started Using Tobacco: 6; Age Quit Using Tobacco: 56; packs per day: 2; Do You Dip or Chew Tobacco: No; Hx Alcohol Use: No Hx Substance Use: No Preferred Language: Kinyarwanda Communication Ability: Effective Sales Support Representative Required: No Beliefs That Will Affect Care: None marital status: Current Living Situation: Spouse and Family Current Living Situation Comment: , daughter and grandson Feels Safe at Home: Yes Assistive Devices: Denture - Upper, Glasses and Hearing Aid - Bilateral Physical Exam Physical Exam: Patient appears in no particular distress does have a loose cough in the emergency department Patient's oropharynx is without erythema or exudates He has no cervical lymphadenopathy wheeze or stridor Cardiac exam appears to be regular (history of both A-fib and a flutter) there are no murmurs Lungs exam shows some loose cough otherwise clear abd is soft and non tender ext without edema Results & Data Results & Data Vital Signs (Past 12 Hours) Vital Signs Temp Pulse Resp BP Pulse Ox O2 Del Method O2 Flow Rate 05/15/24 10:30 167/92 H 05/15/24 10:21 66 21 94 Nasal Cannula 2 05/15/24 10:03 70 21 145/82 H 94 Nasal Cannula 2 05/15/24 09:57 71 26 H 94 Nasal Cannula 2 05/15/24 09:05 93 Nasal Cannula 2 05/15/24 09:04 89 L Room Air 05/15/24 09:03 78 30 H 151/87 H 94 Nasal Cannula 2 05/15/24 08:54 77 30 H 151/87 H 90 Nasal Cannula 2 05/15/24 08:51 82 24 154/91 H 90 Nasal Cannula 2 05/15/24 08:47 79 05/15/24 08:34 97.9 F 81 18 151/84 H 98 Laboratory Results review cbc review chemisty review low magnesemia transaminitis Code Status & VTE Plan VTE Prophylaxis Plan VTE Prophylaxis will be ordered: Yes PG Care Time/CCT Total # of Minutes Spent Total Time Spent with Patient: Total time spent is greater than 50% in coordination of care (as documented) at patient's floor/unit and/or counseling patient: Coding Level of Care Code 75026 INT INP/OBS CARE 375MIN Diagnoses Acute hypoxemic respiratory failure J96.01 Dysphagia R13.10 Atrial fibrillation with RVR I48.91
--- NOTE | 2024-05-15 12:41 | Electrocardiogram Report ---
Test Reason : Blood Pressure : */* mmHG Vent. Rate : 80 BPM Atrial Rate : 80 BPM P-R Int : 166 ms QRS Dur : 88 ms QT Int : 362 ms P-R-T Axes : 71 -44 -7 degrees QTcB Int : 417 ms Normal sinus rhythm Left axis deviation T wave abnormality, consider lateral ischemia Abnormal ECG When compared with ECG of 20-Apr-2022 13:12, (unconfirmed) Sinus rhythm has replaced Atrial fibrillation QRS axis Shifted left Nonspecific T wave abnormality now evident in Inferior leads T wave inversion now evident in Lateral leads Confirmed by Jose Schwarz ([id number]) on 05/15/2024 12:41:34 PM Referred By: REFERRED SELF Confirmed By: Jose Schwarz
[2024-05-15] MEDS ORDERED: PROMETHAZINE HCL 12.5 MG/10 ML UDP PO PRN (12:49)
[2024-05-15] MEDS ORDERED: ALUMINUM/MAGNESIUM SUSP 30 ML UDC PO PRN (12:49)
[2024-05-15] MEDS ORDERED: ALBUTEROL HFA 8 GM INHALER INH PRN (12:49)
[2024-05-15] MEDS: ONDANSETRON 4 MG OD TAB PO SCH (13:10)
[2024-05-15] MEDS: MAGNESIUM SULFATE / D5W 1 GM/100 ML BAG IV ONE (13:10)
[2024-05-15] MEDS: FUROSEMIDE 20 MG TAB PO SCH (13:57)
[2024-05-15] MEDS: UMECLIDINIUM BROMIDE 62.5MCG/BLISTER 7 PUFFS/INHALER INH SCH (13:57)
[2024-05-15] MEDS: predniSONE 20 MG TAB PO STA (13:57)
[2024-05-15] MEDS: FLUTICASONE/VILANTEROL 100/25MCG 14 PUFFS/INHALER INH SCH (13:57)
[2024-05-15 15:26] LABS: Appearance Urine Clear (Clear); Bacteria Urine Automated None Seen (None Seen); Bilirubin Urine Negative (Negative); Blood Urine Negative (Negative); Cast Urine Automated 0-2 /lpf (0-2); Color Urine Yellow; Epithelial Cell Urine Auto 0-2 /hpf (0-2); Glucose Urine UA Negative (Negative); Ketones Urine Negative (Negative); Leukocyte Esterase Urine Negative (Negative); Nitrite Urine Negative (Negative); Protein Urine Trace (Negative); RBC Urine Automated 0-2 /hpf (0-2); Specific Gravity Urine 1.017 (1.000-1.030); Urobilinogen Urine Positive (Negative); WBC Urine Automated 0-5 /hpf (0-5)
[2024-05-15] MEDS: OSELTAMIVIR PHOSPHATE 75 MG CAP PO SCH (19:35)
[2024-05-15] MEDS: EZETIMIBE 10 MG TAB PO SCH (19:36)
[2024-05-15] MEDS: ASPIRIN 81 MG ECTAB PO SCH (19:36)
[2024-05-15] MEDS: ACETAMINOPHEN 325 MG TAB PO PRN (19:36)
[2024-05-15] MEDS: APIXABAN 5 MG TABLET PO SCH (19:36)
[2024-05-15] MEDS: MULTIVITAMIN TAB PO SCH (19:36)
[2024-05-16 07:40] VITALS: BP 170/82; PULSE 70; RESP 18; TEMP 97.6; O2SAT 92
[2024-05-16] MEDS: FUROSEMIDE 40 MG TAB PO SCH (07:57)
[2024-05-16] MEDS: METOPROLOL SUCC 25MG EXT REL TAB PO SCH (07:57)
[2024-05-16] MEDS: VALSARTAN 80 MG TAB PO SCH (07:58)
[2024-05-16 08:22] LABS: Hematocrit (blood only) 40.1 % (42.0-52.0); Hemoglobin 13.8 g/dl (14.0-18.0); Mean Corpuscular Hemoglobin 33.3 pg (25.0-34.0); Mean Corpuscular Hgb Conc 34.4 g/dL (32.0-36.0); Mean Corpuscular Volume 96.9 fL (80.0-100.0); Mean Platelet Volume 9.9 fL (9.4-12.4); Platelet Count 282 K/uL (130-400); RDW Coefficient of Variation 11.8 % (11.5-14.5); RDW Standard Deviation 41.8 fL (36.4-46.3); Red Blood Count 4.14 M/uL (4.70-6.10); White Blood Count 10.55 K/ul (4.8-10.8)
[2024-05-16 08:31] LABS: Calcium 9.5 mg/dl (8.6-10.3); Creatinine Clr Calc Pharmacy 91.6 ml/min; Potassium 4.1 mmol/L (3.5-5.1)
--- NOTE | 2024-05-16 17:21 | Discharge Summary ---
Discharge Summary Date of Service May 16, 2024 Principal Dx & Hospital Course #1 = Principal Diagnosis (1) Acute hypoxemic respiratory failure: Patient is a history of substantial tobacco abuse presents with acute hypoxic respiratory failure secondary to influenza A infectionpatient improved no longer requiring oxygen Time course is questionable about influenza A, much improvement with Tamiflu & 1 dose of prednisone , will complete tamiflu and prednisone as outpt Patient is a sees Dr. 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 Prior to this he had a Watchman procedure but subsequent to this he has been placed on Eliquis therapy by Dr. Cortez at [facility]. He currently remains on metoprolol 75 aspirin 81 Lasix 40 mg Sunday and 20 mg other days valsartan 80 and Ezetimibe Plan Repleted his hypomagnesemia Mild transaminitis is noticed with a previous history of alcohol use Patient is a full code DVT prevention is Eliquis therapy Notes For Next Care Provider may benefit from GI referal as did have esophageal dilation in past, did see Dr Leal Admission HPI Per Admitting Provider 68 M with unremitting cough and dysphagia, ( history of esophageal dilation 06/2023), pts previous family members have had Influenza A, Pt is weakened, has hypoxia in the ER, history of tobacco abuse and likely copd. Pt has recently been to [facility] [place] for Ablation and 5 day hospital stay for CHF with increased lasix during the stay. The pt has had good recovery with supplemental oxygen, no focal pneumonia on CXR. Pt biggest issue has been swallowing for the last few weeks, has not been able to eat solids and requests liquid diet. Discharge Exam Pt awake and feeling better cough has lessened lungs are clear Discharge Plan Discharge Items Patient Disposition: Home - Self-Care Reason For Visit: INFLUENZA A, ACUTE ON CHRONIC RESP FAILURE W/HYPOX Discharge Diagnosis: influenza A infection Activity: Per Instructions section Activity Comment: slowly increase activity Non-emergency contact: Primary Care Provider Call non-emergency contact if: your symptoms worsen Follow-up/Referrals: Ruth Menjivar DO [Primary Care Provider] - 05/19/24 1:00 pm (12:45 arrival time- with Dr Sterling) Diet: Regular Addtl Attending Provider Instructions: finish additional 8 doses of Tamiflu finish a short course of prednisone rest and recover Addtl Core Man Provider Instructions: you may still be infectious to other people while you are recovering, so try to limit your exposure to those who have not been ill in your family or if you need to be around people such as to shop or appointments, please consider wearing a mask to protect others Pending Studies at Discharge: Yes Studies:: you blood cultures will be watched for 5 days Stand-Alone Forms: My [employer], Smoking Cessation Medications and DC Order Prescriptions: New promethazine 6.25 mg/5 mL Syrup 12.5 mg PO Q6H PRN (Reason: cough) Qty: 120 0RF oseltamivir [Tamiflu] 75 mg Capsule 75 mg PO BID Qty: 8 0RF prednisone 20 mg tablet 40 mg PO DAILY Qty: 8 0RF Continued albuterol sulfate [Ventolin HFA] 90 mcg/actuation HFA aerosol inhaler 2 puff INH QID PRN (Reason: shortness of breath or wheezing) Qty: 18 5RF fluticasone propion-salmeterol [Wixela Inhub] 250-50 mcg/dose blister with device 1 inh inhalation BID Qty: 3 3RF Eliquis 5 mg tablet 5 mg PO BID Qty: 180 3RF Spiriva Respimat 2.5 mcg/actuation mist 2 inh inhalation QAM Qty: 3 3RF ondansetron 4 mg tablet,disintegrating 4 mg PO Q8H Qty: 30 0RF valsartan 80 mg tablet 80 mg PO DAILY metoprolol succinate 25 mg tablet extended release 24 hr 75 mg PO QAM multivitamin Capsule 1 cap PO QPM ezetimibe 10 mg Tablet 10 mg PO QPM aspirin 81 mg tablet,delayed release (DR/EC) 81 mg PO QPM furosemide [Lasix] 20 mg tablet See Rx Instructions .ROUTE .COMPLEX Rx Instructions: Take 40mg by mouth on Sunday, Sunday and Sunday then take 20mg by mouth all other days Discharge Orders: Discharge Order (Routine); Ordered 05/16/24 Ordered By: Solomon Bowman Admission Data Admit Date/Time: 05/15/24 11:33 Attending Provider: Solomon Bowman Admit Provider: Solomon Bowman Primary Care Provider: Ruth Menjivar Other Providers: Solomon Bowman Other Interventions: Discharge Summary Assessment (RN) Last Done: 05/16/24 11:29 Hospital Stay Data Consultations 05/15/24 11:37 ED Decision to Admit Stat Pending Results Patient Have Any Pending Studies at Discharge: Yes Discharge Instructions Given to Patient (Per Discharging Provider) finish additional 8 doses of Tamiflu finish a short course of prednisone rest and recover Total Time Total Time Spent Total Time Spent (In Minutes): It required greater than 30 minutes to prepare this patient for discharge. Coding Level of Care Code 51997 INP/OBS DISCH >30 MIN Diagnoses Acute hypoxemic respiratory failure J96.01 Dysphagia R13.10 Atrial fibrillation with RVR I48.91
== END 2024-05-16 12:17 | disposition home or self-care (01) | DRG 189 ==
LOC: ED 08:29 → 2W 11:33